=== PATIENT | female | born 1990 | race American Indian/Alaskan Native ===

== ENCOUNTER 2016-10-22 08:29 | Day surgery (SDC) | payer BC ==
--- NOTE | 2016-10-22 10:59 | Anesthesia Consultation ---
Anesthesia Consult and Med Hx Date of service: 10/22/16 - Airway Anesthetic Teeth Evaluation: Good ROM Head & Neck: Adequate Mental/Hyoid Distance: Adequate Mallampati Class: Class II Intubation Access Assessment: Probably Good - Pulmonary Exam CTA: Yes - Cardiac Exam Cardiac Exam: RRR - Pre-Operative Health Status ASA Pre-Surgery Classification: ASA1 Proposed Anesthetic Plan: General - Gastrointestinal Hx Gastroesophageal Reflux Disease: Yes (rtare, food related) - Other Systems Hx Alcohol Use: Yes (occas) Hx Cancer: No
[2016-10-22] MEDS ORDERED: LACTATED RINGERS 1,000 ML IV SCH (11:00)
[2016-10-22] MEDS ORDERED: DILAUDID IV PRN (11:00)
[2016-10-22] MEDS ORDERED: ZOFRAN IV PRN (11:00)
[2016-10-22] MEDS ORDERED: NORCO 5/325 PO PRN (11:00)
[2016-10-22] MEDS ORDERED: PEPCID PO NR (11:00)
[2016-10-22] MEDS ORDERED: VERSED IV NR (11:00)
--- NOTE | 2016-10-22 11:00 | Anesthesia Day of Surgery ---
Anesthesia Day of Surgery - Day of Surgery Patient Examined: Yes Patient H&P Reviewed: Yes Patient is NPO: Yes
[2016-10-22] MEDS ORDERED: NACL BACTERIOSTATIC INFILTRATI ONE (11:14)
[2016-10-22] MEDS ORDERED: ANCEF/STERILE WATER 2 GM/20 ML IV NR (12:00)
[2016-10-22 12:02] LABS: Basophils % (Auto) 0.3 % (0.0-1.8); Eosinophils % (Auto) 0.6 % (0.0-4.3); Hematocrit 42.4 % (30.3-42.9); Hemoglobin 14.1 gm/dl (10.1-14.3); Mean Corpuscular HGB Conc 33 % (30-34); Mean Corpuscular Hemoglobin 31 pg (28-32); Mean Corpuscular Volume 92 fl (79-97); Platelet Count 234 K/mm3 (140-440); Red Blood Count 4.61 M/mm3 (3.65-5.03); Red Cell Distribution Width 12.8 % (13.2-15.2); White Blood Count 7.8 K/mm3 (4.5-11.0)
[2016-10-22] MEDS ORDERED: DIPRIVAN 10 MG/ML IV ONE ×2 (14:13→15:16)
[2016-10-22] MEDS ORDERED: XYLOCAINE MPF 2% ONE (14:13)
[2016-10-22] MEDS ORDERED: DILAUDID ONE ×3 (14:13→15:12)
[2016-10-22] MEDS ORDERED: NACL 0.9% IR ONE (14:38)
[2016-10-22] MEDS ORDERED: DECADRON ONE (14:53)
[2016-10-22] MEDS ORDERED: ZOFRAN ONE (14:53)
[2016-10-22] MEDS ORDERED: SUBLIMAZE ONE ×2 (15:19→15:27)
[2016-10-22] MEDS ORDERED: LACTATED RINGERS 1,000 ML ONE (15:38)
[2016-10-22 17:54] VITALS: BP 151/84
--- NOTE | 2016-10-22 18:24 | Post Anesthesia Evaluation ---
- Post Anesthesia Evaluation Patient Participated: Yes Airway Patent: Yes Stable Respiratory Function: Yes Nausea/Vomiting: No Temp > 96.8F: Yes Pain Manageable: Yes Adequeate Hydration: Yes Anesthesia Complications: No
--- NOTE | 2016-10-22 21:11 | Operative Report ---
SERVICE: Plastic surgery. PREOPERATIVE DIAGNOSIS: Macromastia. POSTOPERATIVE DIAGNOSIS: Macromastia. PROCEDURE: Bilateral reduction mammoplasty with nipple amputation. SURGEON: Abdirizak Huerta MD. HOSPICE OFFICE COORDINATOR: Venu Riley CSA. FINDINGS: Right breast 1660 g. Left breast 1780 g. DESCRIPTION OF PROCEDURE: The patient was brought to the operating room and placed on the table in supine position. Following administration of general anesthesia, bilateral breasts were prepped with Betadine solution and draped in usual sterile manner. A #10 blade scalpel was used to make a circumareolar skin incision followed by de-epithelization of inferior dermal pedicle. Modified Temple pattern skin markings were incised with scalpel, deepened through subcutaneous fat and breast tissue using the electrocautery. Skin flaps were raised in standard manner as was fashioning of an inferior central mound pedicle. Breast tissue was resected inclusive of the nipple areolar complex due to the excessive IMF to nipple distance. Hemostasis controlled using electrocautery. Skin flaps were closed over 10 mm MONICA drains using interrupted and running subcuticular 2-0 Monocryl sutures. Mastisol, Steri-Strips and sterile dressings applied. The patient tolerated the procedure well and returned to recovery room in stable condition. JOB# [id number] FTW/NTS
== END 2016-10-22 18:25 | disposition home or self-care (01) ==
LOC: OR 08:29
PROVIDERS: ATTEND Plastic Surgery
DX: N62 Hypertrophy of breast (principal); K21.9 Gastro-esophageal reflux disease without esophagitis; Z72.89 Other problems related to lifestyle; Z82.61 Family history of arthritis; Z82.5 Family history of asthma and other chronic lower respiratory diseases; Z80.3 Family history of malignant neoplasm of breast; Z83.3 Family history of diabetes mellitus; Z81.8 Family history of other mental and behavioral disorders; Z82.3 Family history of stroke; Z80.41 Family history of malignant neoplasm of ovary
CPT/HCPCS: 19318; 36415; 81025; 85025; 88305; J0690; J1100; J1170; J2250; J2405; J2704; J3010; J7120

== ENCOUNTER 2017-02-25 06:44 | Day surgery (SDC) | payer BC ==
[2017-02-25] MEDS ORDERED: NACL BACTERIOSTATIC INFILTRATI ONE (08:25)
[2017-02-25] MEDS ORDERED: DILAUDID IV PRN ×3 (08:27→11:31)
--- NOTE | 2017-02-25 08:27 | Anesthesia Day of Surgery ---
Anesthesia Day of Surgery - Day of Surgery Patient Examined: Yes Patient H&P Reviewed: Yes Patient is NPO: Yes
--- NOTE | 2017-02-25 08:27 | Anesthesia Consultation ---
Anesthesia Consult and Med Hx Date of service: 02/25/17 - Airway Anesthetic Teeth Evaluation: Good ROM Head & Neck: Adequate Mental/Hyoid Distance: Adequate Mallampati Class: Class I Intubation Access Assessment: Good - Pulmonary Exam CTA: Yes - Cardiac Exam Cardiac Exam: RRR - Pre-Operative Health Status ASA Pre-Surgery Classification: ASA1 Proposed Anesthetic Plan: General - Central Nervous System Hx Psychiatric Problems: No - Gastrointestinal Hx Gastroesophageal Reflux Disease: Yes (rtare, food related) - Other Systems Hx Alcohol Use: Yes (glass of wine/night) Hx Substance Use: No Hx Cancer: No - Additional Comments Anesthesia Medical History Comments: Healthy , no routine medicines
[2017-02-25] MEDS ORDERED: LACTATED RINGERS 1,000 ML IV SCH (09:00)
[2017-02-25] MEDS ORDERED: VERSED IV NR (09:00)
[2017-02-25] MEDS ORDERED: PEPCID PO NR (09:00)
[2017-02-25] MEDS ORDERED: ANCEF/STERILE WATER 2 GM/20 ML IV NR (09:30)
[2017-02-25] MEDS ORDERED: PERCOCET 5/325 PO PRN ×2 (09:30→09:51)
[2017-02-25] MEDS ORDERED: ZOFRAN IV PRN ×2 (09:30→09:51)
[2017-02-25] MEDS ORDERED: DIPRIVAN 10 MG/ML IV ONE ×2 (09:39→10:03)
[2017-02-25] MEDS ORDERED: DILAUDID ONE (09:39)
[2017-02-25] MEDS ORDERED: XYLOCAINE MPF 2% ONE (09:40)
[2017-02-25] MEDS ORDERED: ZOFRAN ONE (09:41)
[2017-02-25] MEDS ORDERED: DECADRON ONE (09:41)
[2017-02-25] MEDS ORDERED: ROBINUL ONE (09:41)
[2017-02-25] MEDS ORDERED: NEO SYNEPHRINE/NS Syringe(OR USE) IV ONE (10:00)
[2017-02-25] MEDS ORDERED: LACTATED RINGERS 1,000 ML ONE (10:42)
--- NOTE | 2017-02-25 11:15 | Operative Report ---
PREOPERATIVE DIAGNOSES: 1. Bilateral absence of nipples. 2. Bilateral acquired breast deformity, status post bilateral breast reduction with nipple areolar complex amputation due to excessive length of the pedicle. SURGEON: Abdirizak Huerta MD HAND PLEATER: Venu Riley DESCRIPTION OF PROCEDURE: The patient was brought to the operating room and placed on the table in supine position. Following administration of general anesthesia, the breasts were prepped with Betadine solution and draped in the usual sterile manner. A #11 blade scalpel was used to incise preoperative markings for a flag shaped flap which was elevated in standard manner, folded around upon itself, secured in place with 3-0 Monocryl sutures to form a cylinder. Donor site was closed with interrupted 2-0 Monocryl sutures followed by running subcuticular 3-0 Monocryl suture. A dermal base was deepithelialized upon which the nipple rested, secured in place with interrupted and running 3-0 Monocryl sutures. Mastisol, Steri-Strips, and a protective dressing applied. The patient tolerated the procedure well and returned to recovery room in stable condition. JOB# [id number] FTW/NTS
[2017-02-25] MEDS ORDERED: TORADOL IV PRN (11:45)
[2017-02-25 20:02] VITALS: BP 114/68
== END 2017-02-25 13:33 | disposition home or self-care (01) ==
LOC: OR 06:44
PROVIDERS: ATTEND Plastic Surgery
DX: N64.89 Other specified disorders of breast (principal)
CPT/HCPCS: 19350; 81025; J0690; J1100; J1170; J1885; J2250; J2370; J2405; J2704; J7120